=== PATIENT | female | born 1970 | race Caucasian/White ===

== ENCOUNTER 2017-04-30 21:51 | Emergency (ER) ==
[2017-04-30 22:38] VITALS: BP 131/67
== END 2017-04-30 23:05 | disposition left against medical advice (07) ==
LOC: ER 21:51
DX: Z53.21 Procedure and treatment not carried out due to patient leaving prior to being seen by health care provider (principal)

== ENCOUNTER 2017-05-01 08:22 | Emergency (ER) | payer SELFPAY ==
--- NOTE | 2017-05-01 09:52 | ER Document Report ---
HPI - HPI Patient complains to provider of: rash left ear Onset: Other Onset/Duration: Persistent Quality of pain: Burning, Other - itchy Severity: Moderate Pain Level: 4 Context: Patient states she has had a rash to her left ear that was treated with Bactroban by her primary care physician a couple weeks ago. The Bactroban helped, but as soon as she stopped using it the rash came back and has now spread to her extremities. Denies fever. Associated Symptoms: None Exacerbated by: Other - She Relieved by: Denies Similar symptoms previously: Yes Recently seen / treated by doctor: Yes - ROS ROS below otherwise negative: Yes Systems Reviewed and Negative: Yes All other systems reviewed and negative - CONSTITUTIONAL Constitutional: DENIES: Fever - EENT EENT: REPORTS: Ear Pain - Outer left ear. DENIES: Congestion - NEURO Neurology: REPORTS: Headache - CARDIOVASCULAR Cardiovascular: DENIES: Chest pain - RESPIRATORY Respiratory: DENIES: Trouble Breathing - GASTROINTESTINAL Gastrointestinal: DENIES: Abdominal Pain - URINARY Urinary: DENIES: Dysuria - REPRODUCTIVE Reproductive: DENIES: : - MUSCULOSKELETAL Musculoskeletal: DENIES: Extremity pain - DERM Skin Color: Erythema Skin Problems: Rash <SANDRO DIAMOND - Last Filed: 05/01/17 09:56> Past Medical History - General Information source: Patient - Social History Smoking Status: Current Every Day Smoker Frequency of alcohol use: Occasional Drug Abuse: None Lives with: Family Family History: Reviewed & Not Pertinent Musculoskeltal Medical History: Reports Hx Musculoskeletal Trauma Past Surgical History: Reports: Hx Orthopedic Surgery <SANDRO DIAMOND - Last Filed: 05/01/17 09:56> Vertical Provider Document - CONSTITUTIONAL Agree With Documented VS: Yes Exam Limitations: No Limitations General Appearance: WD/WN, No Apparent Distress - INFECTION CONTROL TRAVEL OUTSIDE OF THE [place] IN LAST 30 DAYS: No - HEENT HEENT: Atraumatic, Normal ENT Exam, Normocephalic - NECK Neck: Normal Inspection, Supple - RESPIRATORY Respiratory: Breath Sounds Normal, No Respiratory Distress O2 Sat by Pulse Oximetry: 100 - CARDIOVASCULAR Cardiovascular: Regular Rate, Regular Rhythm - MUSCULOSKELETAL/EXTREMETIES Musculoskeletal/Extremeties: MAJOSE VALENTINO - NEURO Level of Consciousness: Awake, Alert, Appropriate - DERM Integumentary: Warm, Dry, Rash - Patient has red rough rash noted to forehead, left outer ear, and legs bilaterally. Areas on right leg are excoriated, no drainage noted. No vesicles noted. Also multiple scattered papules to legs. <SANDRO DIAMOND - Last Filed: 05/01/17 09:56> Course - Vital Signs Vital signs: Temp Pulse Resp BP Pulse Ox 98.5 F 105 H 18 125/80 100 05/01/17 08:34 05/01/17 08:34 05/01/17 08:34 05/01/17 08:34 05/01/17 08:34 <SANDRO DIAMOND - Last Filed: 05/01/17 09:56> - Vital Signs Vital signs: Temp Pulse Resp BP Pulse Ox 98 F 87 16 113/87 H 99 05/01/17 10:00 05/01/17 10:00 05/01/17 10:00 05/01/17 10:00 05/01/17 10:00 <GENARO GARCIA - Last Filed: 05/02/17 14:37> Discharge <SANDRO DIAMOND - Last Filed: 05/01/17 09:56> <JOSEGENARO - Last Filed: 05/02/17 14:37> - Discharge Clinical Impression: Rash, Otalgia, left ear Disposition: HOME, SELF-CARE Additional Instructions: Take all medications as prescribed OTC Benadryl as needed for itching. If Benadryl makes you too sleepy, take OTC Zyrtec or Claritin for itching. Follow-up with your doctor next week for recheck return as needed Prescriptions: Ibuprofen 800 mg PO TID PRN #30 tablet PRN Reason: Mupirocin [Bactroban 2% Ointment 22 gm] 1 applic TP TID #1 tube Sulfamethoxazole/Trimethoprim [Bactrim Ds Tablet] 1 each PO BID #20 tablet Forms: Return to Work Referrals: SKYLAR COSME NP [Primary Care Provider] - Follow up as needed
[2017-05-01 10:44] VITALS: BP 113/87
== END 2017-05-01 09:55 | disposition home or self-care (01) ==
LOC: ER 08:22
DX: R21 Rash and other nonspecific skin eruption (principal); H92.02 Otalgia, left ear; R51 Headache; F17.200 Nicotine dependence, unspecified, uncomplicated
CPT/HCPCS: 99282